=== PATIENT | female | born 1950 | race Caucasian/White ===

== ENCOUNTER 2016-08-28 19:58 | Inpatient (IN) | payer MEDICARE, BC ==
[2016-08-28] MEDS ORDERED: ADENOSINE 3 MG/ML DISP.SYRIN IV ONE ×2 (20:03→20:31)
[2016-08-28] MEDS ORDERED: DILTIAZEM HCL 5 MG/ML VIAL IV ONE ×2 (20:10→20:31)
[2016-08-28] MEDS ORDERED: DILTIAZEM HCL 125 MG in DEXTROSE 5 % IN WATER 100 ML IV PRN ×2 (20:20)
--- NOTE | 2016-08-28 20:32 | ERNOTE ---
Chest Pain/Cardiac HPI Chief Complaint: Palpitations Time Seen by Provider: 08/28/16 20:25 Source: patient, EMS Exam Limitations: no limitations Allergies/Adverse Reactions: Allergies Penicillins Allergy (Verified 08/28/16 21:34) Home Medications: HOME MEDICATIONS Atenolol [Tenormin] 100 mg PO TID 08/28/16 [Last Taken Unknown] Cyclobenzaprine HCl 20 mg PO HS 08/28/16 [Last Taken Unknown] Fluticasone Propionate [Allergy Relief] 2 spray NS DAILY 08/28/16 [Last Taken Unknown] Furosemide [Lasix] 40 mg PO DAILY PRN 08/28/16 [Last Taken Unknown] LORazepam [Ativan] 0.5 mg PO HS 08/28/16 [Last Taken Unknown] LORazepam [Ativan] 1 mg PO 0900 08/28/16 [Last Taken Unknown] Levofloxacin [Levaquin] 500 mg PO DAILY 08/28/16 [Last Taken Unknown] Levothyroxine Sodium [Synthroid] 50 mcg PO DAILY 08/28/16 [Last Taken Unknown] Multivitamin [Multivitamins] 1 each PO DAILY 08/28/16 [Last Taken Unknown] Omeprazole 20 mg PO DAILY 08/28/16 [Last Taken Unknown] Potassium Chloride [Klor-Con M20] 20 meq PO BID PRN 08/28/16 [Last Taken Unknown ] QUEtiapine FUMARATE [Seroquel] 75 mg PO HS 08/28/16 [Last Taken Unknown] Narrative: Pt brought in by EMS with palpitations and weakness. EMS found narrow complex tachycardia at 170-180 bpm mixed with runs of stable monomorphic wide complex tachycardia at 150 bpm. Pt has holter monitor on due to these symptoms that have been intermittant for 4-5 months. Timing: constant, getting worse Severity/Quality: moderate, severe Chest Pain Radiation: no radiation Activities at Onset: activity - not strenuous, was walking the dog Modifying Factors - Improves: Present: nothing Modifying Factors - Worsens: Present: exercise Review of Systems - Review of Systems Constitutional: Absent: recent illness EYE: Present: no symptoms reported ENT: Present: no symptoms reported Respiratory: Present: shortness of breath. Absent: cough Cardiology: Present: palpitations. Absent: chest pain Gastrointestinal/Abdominal: Absent: nausea, vomiting Genitourinary: Present: no symptoms reported Musculoskeletal: Present: no symptoms reported Skin: Present: no symptoms reported Neurological: Present: dizziness/light-headedness Endocrine: Present: no symptoms reported Hematologic/Lymphatic: Present: no symptoms reported Psych: Present: no symptoms reported - Patient's Past Medical History Patient History - Cardiac/Respiratory: Arrhythmias - Family History Mother Family History - Medical: - at 62 Family History - Cancer: Bone Father Family History - Medical: Family History - Cardiac/Respiratory: CHF Physical Exam - Physical Exam General Appearance: Present: wd/wn, alert, mild distress, lethargic - mildly Eye Exam: Normal inspection: bilateral Ears, Nose, Throat: Present: normal ENT inspection Neck: Present: normal inspection, nontender Respiratory: Present: no respiratory distress, normal breath sounds, chest nontender, lungs clear Cardiovascular/Chest: Present: tachycardia Gastrointestinal/Abdominal: Present: normal bowel sounds, nontender, nondistended, soft Extremity Exam: Present: normal inspection, non-tender, no edema Neurological Exam: Present: alert, oriented, lens edger II-XII nml as tested Skin Exam: Present: normal color, warm/dry Lymphatic Exam: Present: no adenopathy ED Progress - Results and Orders Patient's Lab Results:: I have reviewed the patient's lab results. Results and Orders: Laboratory Tests 08/28/16 08/28/16 08/28/16 20:30 20:30 20:30 WBC 11.8 H Hgb 15.2 Hct 44.5 Plt Count 285 PT 10.8 INR (Anticoag Therapy) 1.04 PTT (Courtney) 26.7 Sodium 142 Potassium 2.9 L Chloride 106 Carbon Dioxide 21.9 L Anion Gap 17.0 H BUN 24 H Creatinine 1.30 Est GFR (Non-Af Amer) 44 L D BUN/Creatinine Ratio 18.5 Random Glucose 104 Calcium 9.0 Total Bilirubin 0.5 AST 18 ALT 23 Alkaline Phosphatase 101 Troponin I Less than 0.017 Total Protein 7.4 Albumin 3.3 L - Vital Signs Patient's Vital Signs:: I have reviewed the patient's vital signs. - EKG EKG: atrial fibrillation EKG read: Interp. by me EKG Comments: with run of monomorphic wide complex tachycardia - X-Ray X-Ray #1 X-Ray: chest Interpretation: Reviewed by me X-ray Comments: The lungs are mildly hyperinflated. There is eventration of the right diaphragm.. No focal consolidation. No pneumothorax or pleural effusion. Scattered calcified granulomas. The cardiac silhouette and mediastinal contours are unchanged. The pulmonary vascular markings are normal. Scattered calcified granulomas. The osseous structures are remarkable for degenerative changes. No acute osseous findings. Surgical clips are superimposed over the right upper quadrant. IMPRESSION: No acute pulmonary findings. Electronically signed by Chris Otto D.O.. - Progress/Reassessment Chief Complaint: Palpitations Progress:: Improved Progress Note-Subjective: 08/28/16 21:41 Pt began feeling much better after Cardizem 20 mg IV which brought heart rate down to 800-100 bpm. Pt no longer short of breath and not dizzy 08/28/16 22:00 Spoke with Elysia RANDOLPHP hospitalist she agrees with admission and will see pt in ED. Departure - Departure Clinical Impression: Atrial fibrillation with RVR Disposition: [facility] Condition: Good
[2016-08-28 20:34] LABS: Hematocrit 44.5 % (37.0-47.0); Hemoglobin 15.2 gm/dL (12.5-16.0); Mean Cell Volume 87.4 fl (78-100); Mean Corpuscular Hemoglobin 29.9 pg (27-31); Mean Corpuscular Hgb Conc 34.2 g/dl (32-36); Mean Platelet Volume 11.4 fl (6.0-9.5); Platelet Count 285 K/mm3 (150-450); Red Blood Count 5.09 M/mm3 (4.2-5.4); Red Cell Distribution Width 13.7 % (11.5-14.0); White Blood Count 11.8 K/mm3 (4.0-10.5)
[2016-08-28 20:39] LABS: Total Cells Counted 100
[2016-08-28] MEDS ORDERED: NORMAL SALINE 1,000 ML IV ONE (20:39)
[2016-08-28 20:42] LABS: Prothrombin Time (Patient) 10.8 Seconds (9.4-11.4)
[2016-08-28 20:43] LABS: INR 1.04 INR (0.90-1.10); Partial Thrombolplastin Time 26.7 Seconds (24-32)
[2016-08-28 20:49] LABS: ALT 23 U/L (19-67); AST 18 U/L (0-48); Albumin * 3.3 gm/dl (3.4-5.0); Alkaline Phosphatase * 101 U/L (50-170); BUN/Creatinine Ratio 18.5 (9.0-21.6); Bilirubin, Total 0.5 mg/dL (0.0-1.1); Blood Urea Nitrogen 24 mg/dL (3-23); Ca. Corrected For Albumin 9.2 mg/dL (8.4-10.2); Carbon Dioxide 21.9 mmol/L (24-32.6); Chloride 106 mmol/L (97-106); Glucose * 104 mg/dL (70-110); Potassium 2.9 mmol/L (3.4-4.6); Sodium 142 mmol/L (132-142); Total Protein 7.4 gm/dL (6.2-8.2)
[2016-08-28 20:50] LABS: Troponin I Less than 0.017 ng/ml (0.00-0.10)
--- OUTSIDE RECORDS SUMMARY | 2016-08-28 20:56 | XMS REPORT | Continuity of Care Document ---
:1950 Author Organization [facility] [place] [address] Care Team Providers Name Role Phone Provider, None Per Patient Primary Care Provider Unavailable Source Comments This disclosure is being made pursuant to the [email or web address] program and maynot contain all information available regarding this patient.[facility] Active Allergies and Adverse Reactions Allergen Noted Date Severity Reactions Comments Azithromycin 06/04/2014 Other (See Comments) Severe abdominal pain Pcn 06/04/2014 High Hives Reglan 06/04/2014 Medium Tardive Dyskinesia Current Medications Be aware that medications may not be up to date as of this document. Alwaysverify current medications with the patient. Prescription Sig. Disp. Refills Start Date End Date Status fluoxetine (PROZAC) 40 Take 40 mg by Active MG capsule mouth daily. cyclobenzaprine Take 10 mg by Active (FLEXERIL) 10 MG mouth 2 (two) tablet times daily. Indications: fibromyalgia levothyroxine Take 50 mcg by Active (SYNTHROID, mouth every LEVOTHROID) 50 MCG morning. tablet Multiple Take by mouth. Active Vitamins-Minerals (MULTIVITAMIN & MINERAL PO) captopril (CAPOTEN) 25 Take 25 mg by Active MG tablet mouth 2 (two) times daily. LORazepam (ATIVAN) 0.5 Take 1 tablet by 30 tablet 0 06/10/2014 Active MG tablet mouth 2 (two) times daily. Active Problems No known active problems Resolved Problems Problem Noted Date Resolved Date Major psychotic depression, recurrent (HCC) 06/10/2014 06/10/2014 Social History Tobacco Use Types Packs/Day Years Used Date Never Smoker Smokeless Tobacco: Never Used Alcohol Use Drinks/Week oz/Week Comments No rarely Last Filed Vital Signs Vital Sign Reading Time Taken Blood Pressure 104/72 06/10/2014 8:55 AM MEDICAL AFFAIRS DIRECTOR Pulse 74 06/10/2014 8:55 AM MEDICAL AFFAIRS DIRECTOR Temperature 36.3 C (97.3 F) 06/10/2014 8:55 AM MEDICAL AFFAIRS DIRECTOR Respiratory Rate 16 06/10/2014 8:55 AM MEDICAL AFFAIRS DIRECTOR Height 1.6 m (5' 3") 06/05/2014 12:19 PM MEDICAL AFFAIRS DIRECTOR Weight 77.111 kg (170 lb) 06/05/2014 12:19 PM MEDICAL AFFAIRS DIRECTOR Body Mass Index 30.12 06/05/2014 12:19 PM MEDICAL AFFAIRS DIRECTOR Oxygen Saturation 94% 06/07/2014 11:37 PM MEDICAL AFFAIRS DIRECTOR Plan of Care Health Maintenance Due Date Last Done Comments Tetanus/Pertussis (1 - Tdap) 08/01/1970 Pap Smear 08/01/1972 Mammogram 1991 Colonoscopy 08/01/2001 Well Adult Visit 08/01/2001 Zoster Vaccine 60+ 2011 Retired-INFLUENZA VACCINE 01/06/2016 Results from Last 3 Months Not on file
--- OUTSIDE RECORDS SUMMARY | 2016-08-28 20:57 | XMS REPORT | Continuity of Care Document ---
:1950 Author Organization [facility] ([facility]) [place] [address] Phone [phone] Care Team Providers Name Role Phone Azeem Fall Primary Care Provider [phone] Source Comments This disclosure is being made pursuant to the Care Everywhere program, applicable federal and state laws, and may not contain all informaitonavailable regarding this patient.[facility] ([facility]) Active Allergies and Adverse Reactions Allergen Noted Date Severity Reactions Comments Azithromycin 08/09/2016 Unknown Severe abdominal pain Erythromycin 08/11/2014 Stomach Pain Metoclopramide 08/09/2016 Medium Unknown Metoclopramide Hcl 08/11/2014 OTHER Tardive dyskenesia Penicillins 08/11/2014 Urticaria (Hives) Current Medications Prescription Sig. Disp. Refills Start Date End Date Status Trolamine Salicylate by Apply Active (ASPERCREME) 10 % externally lotn route 4 times daily. To knee LORazepam 0.5 mg Take 1 mg by Active tablet mouth 2 times daily. Taking 1mg AM and 0.5mg PM cyclobenzaprine 10 Take 20 mg by Active mg tablet mouth at bedtime. [id number]-dha-e Take 1 Cap by Active pa-fish-st mouth 2 times (GLUCOSAMINE daily. CHONDROITIN PLUS) 367-277-80-54 mg cap levothyroxine 50 mcg Take 50 mcg by Active tablet mouth daily. multivitamin tablet Take 1 Tab by Active mouth daily. OMEPRAZOLE 20 mg Take 20 mg by 10/02/2014 Active enteric coated mouth daily. capsule FLUTICASONE 50 11 11/27/2014 Active mcg/Actuation nasal spray QUEtiapine 25 mg Take 75 mg by 09/14/2015 Active tablet mouth at bedtime. 75mg at HS aspirin 81 mg EC Take 1 tablet 30 tablet 10/27/2015 Active tablet (81 mg total) by mouth daily. multivitamin with Active minerals tablet atenolol 100 mg Take 100 mg by 3 08/01/2016 Active tablet mouth 3 times daily. furosemide 40 mg Take 40 mg by Active tablet mouth daily. potassium chloride Take 20 mEq by Active 20 mEq XR tablet mouth daily. atenolol 50 mg Take 100 mg by Discontinued tablet mouth 3 times 7 daily. loratadine-pseudoeph Take 1 tablet Discontinued edrine 5-120 mg per by mouth 2 7 tablet (12 hour) times daily. FLUoxetine 20 mg Take 20 mg by 11 10/18/2015 Discontinued capsule mouth daily. 7 captopril 25 mg Take 25 mg by Discontinued tablet mouth. 7 Active Problems Problem Noted Date Nonrheumatic aortic valve insufficiency 10/27/2015 Essential hypertension 10/27/2015 Pseudophakia 11/20/2014 Severe myopia of both eyes 10/15/2014 Cataract, cortical, left eye 10/15/2014 Diplopia 10/15/2014 Presbyopia 10/15/2014 Esotropia Overview: Poor abduction and elevation Bilateral 03/04/15: [facility] 4.0 mm - Gavino/Peggy - [facility] Last Assessment & Plan: Esophoria, well controlled now She will call if she is having more diplopia otherwise will follow up in general eye clinic Most Recent Encounters Date Type Specialty Providers Description 08/09/2016 Office Visit Heart and Vascular Una Carcamo, Dx: Palpitations DO (Primary Dx) Social History Tobacco Use Types Packs/Day Years Used Date Never Smoker Smokeless Tobacco: Never Used Alcohol Use Drinks/Week oz/Week Comments No Last Filed Vital Signs Vital Sign Reading Time Taken Blood Pressure 140/60 08/09/2016 1:22 PM CDT Pulse 64 08/09/2016 1:22 PM CDT Temperature 37.6 C (99.7 F) 03/04/2015 3:48 PM CDT Respiratory Rate 16 03/04/2015 4:15 PM CDT Height 1.6 m (5' 3") 08/09/2016 1:22 PM CDT Weight 84.369 kg (186 lb) 08/09/2016 1:22 PM CDT Body Mass Index 32.96 08/09/2016 1:22 PM CDT Oxygen Saturation 96% 03/04/2015 4:15 PM CDT Plan of Care Date Type Specialty Providers Description 08/30/2016 Appointment Heart and Vascular Ronn Garcia, Chief Comp: Patient MD Reported Reason For [address] [place] [address] [phone] (Fax) 08/30/2016 Appointment Heart and Vascular Ronn Garcia, Chief Comp: Patient MD Reported Reason For [address] [place] [address] [phone] (Fax) 09/22/2016 Appointment Ophthalmology - Noah Mancia MD Chief Comp: Patient Specialty [address] [place] [address] Visit [phone] (Fax) Health Maintenance Due Date Last Done Comments HCV Screening 1950 Hepatitis B Vaccine (1 of 3 - Primary Series) 1950 Tdap Vaccine 08/01/1962 Lipid Disorder Screening 08/01/1969 Td Vaccine 08/01/1969 Cervical Cancer Screening 08/01/1981 Mammogram 1991 Colonoscopy 08/01/2001 Zoster Vaccine 2011 Osteoporosis Screening (DXA Bone Density) 08/01/2016 Pneumococcal Vaccine (1 of 2 - PCV13) 08/01/2016 Influenza Vaccine: Seasonal (Season Ended) 2016 Results from Last 3 Months Not on file
[2016-08-28 20:58] LABS: Atypical (Reactive) Lymph 8 % (0-2); Dohle Bodies Trace; Eosinophil 1 % (0-3); Lymphocyte 54 % (20-51); Monocyte 9 % (0-9); Neutrophil 28 % (42-75); Neutrophil # 3.3 K/mm3 (1.3-6.0); Platelet Estimate Normal (NORMAL)
[2016-08-28] MEDS ORDERED: POTASSIUM BICARBONATE/CIT AC 25 MEQ TABLET.EFF PO ONE (21:17)
[2016-08-28] MEDS ORDERED: POTASSIUM BICARBONATE/CIT AC 25 MEQ TABLET.EFF ONE (21:25)
[2016-08-28 21:40] LABS: Urine Bilirubin Negative (NEGATIVE); Urine Blood Negative /ul (NEGATIVE); Urine Ketone Negative (NEGATIVE); Urine Nitrite Negative (NEGATIVE); Urine Protein Negative (NEGATIVE); Urine Specific Gravity <=1.005 SP.GR. (1.005-1.010); Urine Urobilinogen Normal (NORMAL)
[2016-08-28 21:47] LABS: Urine Appearance Clear; Urine Color Yellow; Urine RBC None Seen /hpf (0-5); Urine WBC 0-5 /hpf (0-5)
[2016-08-28 21:48] LABS: Urine Bacteria 1+
--- OUTSIDE RECORDS SUMMARY | 2016-08-28 22:09 | XMS REPORT | Continuity of Care Document ---
:1950 Author Organization [facility] ([facility]) Address [place] [address] Phone [phone] Care Team Providers Name Role Phone Azeem Fall Primary Care Provider [phone] Source Comments This disclosure is being made pursuant to the Care Everywhere program, applicable federal and state laws, and may not contain all informaitonavailable regarding this patient.[facility] ([facility]) Active Allergies and Adverse Reactions Allergen Noted [...] by Active mg tablet mouth at bedtime. [id number] Take 1 Cap by Active pa-fish-st mouth 2 times (GLUCOSAMINE daily. CHONDROITIN PLUS) 099-101-10-54 mg cap levothyroxine 50 mcg Take 50 [...] Overview: Poor abduction and elevation Bilateral 03/04/15: [facility] 4.0 mm - Gavino/Peggy - [facility] Last Assessment & Plan: Esophoria, well controlled [...] Reported Reason For [address] [place] [place] [address] [phone] (Fax) 08/30/2016 Appointment Heart and Vascular Ronn Garcia, Chief Comp: Patient MD Reported Reason For [address] [place] [place] [address] [phone] (Fax) 09/22/2016 Appointment Ophthalmology - Noah Mancia MD Chief Comp: Patient Specialty [address] [place] [address] Visit [phone] (Fax) Health Maintenance Due Date Last Done [...]
--- OUTSIDE RECORDS SUMMARY | 2016-08-28 22:09 | XMS REPORT | Continuity of Care Document ---
:1950 Author Organization [facility] [place] [address] Care Team Providers Name Role Phone Provider, None Per Patient Primary Care Provider Unavailable Source Comments This disclosure is being made pursuant to the [employer] program and maynot contain all information available regarding this patient.[facility] Active Allergies and Adverse Reactions Allergen Noted [...] Taken Blood Pressure 104/72 06/10/2014 8:55 AM MANAGER SERVICE DESK Pulse 74 06/10/2014 8:55 AM MANAGER SERVICE DESK Temperature 36.3 C (97.3 F) 06/10/2014 8:55 AM MANAGER SERVICE DESK Respiratory Rate 16 06/10/2014 8:55 AM MANAGER SERVICE DESK Height 1.6 m (5' 3") 06/05/2014 12:19 PM MANAGER SERVICE DESK Weight 77.111 kg (170 lb) 06/05/2014 12:19 PM MANAGER SERVICE DESK Body Mass Index 30.12 06/05/2014 12:19 PM MANAGER SERVICE DESK Oxygen Saturation 94% 06/07/2014 11:37 PM MANAGER SERVICE DESK Plan of Care Health Maintenance Due Date Last Done Comments Tetanus/Pertussis (1 - Tdap) 08/01/1970 Pap Smear 08/01/1972 Mammogram 1991 Colonoscopy 08/01/2001 Well Adult Visit 08/01/2001 Zoster Vaccine 60+ 2011 Retired-INFLUENZA VACCINE 01/06/2016 Results from Last 3 Months Not on file
--- NOTE | 2016-08-28 23:31 | HP ---
<ZenElysia - Last Filed: 08/29/16 07:08> Chief Complaint - Chief Complaint Date of Service: 08/28/16 Time of Service: 22:42 Chief Complaint: "SOB, Light headeness,sweaty, could not walk". Source of HPI- Pt; unreliable, ER provider report, Pt's EMR. History of Present Illness: Ms. Samson is a 66-yr-old WF pt of Dr. Dorsey with a PMH of: Anxiety, Athritis, Fibromylagia, GERD, HTN, Hypothyroidism, Major Depressive Disorder & PSVT. Pt reports that she had a normal day today and went to work as usual. After she got home in the evening, she walked her puppy. Later while just sitting down, she became SOB, got light headed and became very weak. She called the EMS as she felt her symptoms were related to her irregular heartbeat problems she has had before. She denied Chest pain. Off note, she has had Paroxysmal Tachycardia since Sep, 2015. She was started on Atenolol 50mg daily and saw Cardiology in October, and she felt that Atenolol was controlling her symptoms. She was started on Aspirin and an Echocardiogram done showed she had Aortic Regurgitation. In Jun, 2016, she presented to the office for respiratory illness and HR was noted to be in 160-180 range. Her atenolol dose was increased to 50mg t.i.d. She thought that her tachycardia symptoms seemed to improve, but in August 01, 2016, she raised concerns to her PCP about HR of 160 several times in the week. She was referred to the [facility] Cardiology for a holter monitoring. She states that her Atenolol dose was increased to 100mg t.i.d. and arrangements were made for Cardiac Stress test at [facility], which would be this coming Wednesday 08/30. She felt that she had been doing well since her medication had been increased until tonight's episode when she came to the ED. During evaluation at the ED,HR she was found to be in SVT with HR 170-180s and was given Adenosine. HR dropped to the 120s but was noted to be Afib with RVR. She was given additional IV diltiazem,and remained in the 110s and Cardizem gtt was initiated. At the time of physical exam, she is in no distress and states she feels much better to when she came. She will be placed under observation with remote telemetry monitoring to ensure she does not she does not sustain ventricular tachycardia. - Patient's Past Medical History Patient History - Medical: Anxiety, Arthritis, GERD, Hypothyroidism - Paroxysmal Supraventricular Tachycardia, Aortic Stenosis,Fibromyyalgia. , Other Patient History - Cardiac/Respiratory: Arrhythmias, Hypertension LMP (females 10-50): Menopausal - Family History Mother Family History - Medical: - at 62 Family History - Cancer: Bone Father Family History - Medical: Family History - Cardiac/Respiratory: CHF - Social History Living Situations: home Psych History: Hx of Anxiety Smoking Status: Never smoker Alcohol Use: none Drug Use: none - Immunizations Immunizations Up to Date: No Hx Pneumococcal Vaccination: More Information Required to Determine History of Influenza Vaccine: Yes Review Of Systems (GEN) - Review of Systems Generalized/Overall Review: Present: Weakness, Diaphoresis. Absent: Chills, Fever, Fatigue, Weight loss EENTM: Absent: Eye Pain, Double Vision Respiratory: Present: Shortness of Breath. Absent: Cough, Orthopnea, Stridor Cardiac: Present: Palpitations. Absent: Chest Pain, Edema, Syncope Abdominal: Absent: Nausea, Vomiting Genitourinary: Absent: Burning, Itching, Urgency, Frequency Musculoskeletal: Absent: Joint Pain, Back Pain, Joint Swelling Neurological: Absent: Headache, Anxiety, Depressed Skin: Absent: Dryness, Lesions, Bruising Endocrine: Absent: Intolerance to Cold, Increased Thirst Misc: All systems neg except as marked Allergies/Adverse Reactions: Allergies Allergy/AdvReac Type Severity Reaction Status Date / Time Penicillins Allergy Verified 08/28/16 21:34 Home Medications: HOME MEDICATIONS Atenolol [Tenormin] 100 mg PO TID 08/28/16 [Last Taken Unknown] Cyclobenzaprine HCl 20 mg PO HS 08/28/16 [Last Taken Unknown] Fluticasone Propionate [Allergy Relief] 2 spray NS DAILY 08/28/16 [Last Taken Unknown] Furosemide [Lasix] 40 mg PO DAILY PRN 08/28/16 [Last Taken Unknown] LORazepam [Ativan] 0.5 mg PO HS 08/28/16 [Last Taken Unknown] LORazepam [Ativan] 1 mg PO 0900 08/28/16 [Last Taken Unknown] Levofloxacin [Levaquin] 500 mg PO DAILY 08/28/16 [Last Taken Unknown] Levothyroxine Sodium [Synthroid] 50 mcg PO DAILY 08/28/16 [Last Taken Unknown] Multivitamin [Multivitamins] 1 each PO DAILY 08/28/16 [Last Taken Unknown] Omeprazole 20 mg PO DAILY 08/28/16 [Last Taken Unknown] Potassium Chloride [Klor-Con M20] 20 meq PO BID PRN 08/28/16 [Last Taken Unknown ] QUEtiapine FUMARATE [Seroquel] 75 mg PO HS 08/28/16 [Last Taken Unknown] Exam - Exam Vital Signs: Vital Signs - Last Taken Temp 36.3 C L 08/28/16 20:25 Pulse 102 H 08/28/16 21:55 Resp 16 08/28/16 21:55 BP 109/55 08/28/16 21:55 Pulse Ox 98 08/28/16 21:55 Constitutional: Present: Alert, Oriented x3, No distress ENT Exam: Present: normal ENT inspection, hearing grossly normal. Absent: nasal drainage, pharyngeal erythema Eye Exam: bilateral eye: normal inspection, PERRL Neck: Present: full range of motion, supple, normal inspection Back Exam: Present: normal inspection, no CVA tenderness Respiratory: Present: lungs clear, no accessory muscle use Cardiovascular/Chest: Present: normal peripheral pulses, no chest tenderness, no edema, no JVD, no murmur, irregularly irregular Abdomen: Present: Normal bowel sounds, soft, nontender /Rectal: Present: Exam deferred Extremity: Present: normal range of motion, non-tender, normal inspection Skin Exam: Present: warm/dry, no cyanosis Lymphatic: Present: no adenopathy Neurologic: Present: no motor/sensory deficits, oriented x 3, abnormal gait Appearance: Present: appropriate appearance, appropriate insight Eye contact: Present: cooperative, good eye contact, normal speech Thoughts: Present: normal thought pattern, no apparent hallucination Diagnostic Studies: Laboratory Results WBC 11.8 K/mm3 (4.0-10.5) H 08/28/16 20:30 RBC 5.09 M/mm3 (4.2-5.4) 08/28/16 20:30 Hgb 15.2 gm/dL (12.5-16.0) 08/28/16 20:30 Hct 44.5 % (37.0-47.0) 08/28/16 20:30 MCV 87.4 fl (78-100) 08/28/16 20:30 MCH 29.9 pg (27-31) 08/28/16 20:30 MCHC 34.2 g/dl (32-36) 08/28/16 20:30 RDW 13.7 % (11.5-14.0) 08/28/16 20:30 Plt Count 285 K/mm3 (150-450) 08/28/16 20:30 MPV 11.4 fl (6.0-9.5) H 08/28/16 20:30 Neutrophils % (Manual) 28 % (42-75) L 08/28/16 20:30 Lymphocytes % (Manual) 54 % (20-51) H 08/28/16 20:30 Monocytes % (Manual) 9 % (0-9) 08/28/16 20:30 Eosinophils % (Manual) 1 % (0-3) 08/28/16 20:30 Neutrophils # (Manual) 3.3 K/mm3 (1.3-6.0) 08/28/16 20:30 Lymphocytes # (Manual) 6.4 k/mm3 (1.5-3.5) H 08/28/16 20:30 Monocytes # (Manual) 1.1 k/mm3 (0.0-1.0) H 08/28/16 20:30 Eosinophils # (Manual) 0.1 k/mm3 (0.0-0.7) 08/28/16 20:30 Atypic/Reactive Lymphs 8 % (0-2) H 08/28/16 20:30 Toxic Vacuolation Trace 08/28/16 20:30 Dohle Bodies Trace 08/28/16 20:30 Platelet Estimate Normal (NORMAL) 08/28/16 20:30 PT 10.8 Seconds (9.4-11.4) 08/28/16 20:30 INR (Anticoag Therapy) 1.04 INR (0.90-1.10) 08/28/16 20:30 PTT ([place]) 26.7 Seconds (24-32) 08/28/16 20:30 Sodium 142 mmol/L (132-142) 08/28/16 20:30 Plasma Sodium 142 mmol/L (130-142) 08/28/16 20:30 Potassium 2.9 mmol/L (3.4-4.6) L 08/28/16 20:30 Chloride 106 mmol/L (97-106) 08/28/16 20:30 Carbon Dioxide 21.9 mmol/L (24-32.6) L 08/28/16 20:30 Anion Gap 17.0 mmol/L (6.8-13.8) H 08/28/16 20:30 BUN 24 mg/dL (3-23) H 08/28/16 20:30 Creatinine 1.30 mg/dL (0.4-1.4) 08/28/16 20:30 Est GFR (Non-Af Amer) 44 mL/min (60-130) L D 08/28/16 20:30 BUN/Creatinine Ratio 18.5 (9.0-21.6) 08/28/16 20:30 Random Glucose 104 mg/dL (70-110) 08/28/16 20:30 Calcium 9.0 mg/dL (7.9-10.9) 08/28/16 20:30 Calcium Adj for Albumin 9.2 mg/dL (8.4-10.2) 08/28/16 20:30 Total Bilirubin 0.5 mg/dL (0.0-1.1) 08/28/16 20:30 AST 18 U/L (0-48) 08/28/16 20:30 ALT 23 U/L (19-67) 08/28/16 20:30 Alkaline Phosphatase 101 U/L (50-170) 08/28/16 20:30 Troponin I Less than 0.017 ng/ml (0.00-0.10) 08/28/16 20:30 Total Protein 7.4 gm/dL (6.2-8.2) 08/28/16 20:30 Albumin 3.3 gm/dl (3.4-5.0) L 08/28/16 20:30 Urine Color Yellow 08/28/16 21:37 Urine Appearance Clear 08/28/16 21:37 Urine pH 7.0 pH (5.0-7.0) 08/28/16 21:37 Ur Specific [place] <=1.005 SP.GR. (1.005-1.010) 08/28/16 21:37 Urine Protein Negative mg/dL (NEGATIVE) 08/28/16 21:37 Urine Glucose (UA) Negative mg/dL (NEGATIVE) 08/28/16 21:37 Urine Ketones Negative mg/dL (NEGATIVE) 08/28/16 21:37 Urine Blood Negative /ul (NEGATIVE) 08/28/16 21:37 Urine Nitrate Negative (NEGATIVE) 08/28/16 21:37 Urine Bilirubin Negative mg/dl (NEGATIVE) 08/28/16 21:37 Urine Urobilinogen Normal EU/dl (NORMAL) 08/28/16 21:37 Ur Leukocyte Esterase 75 /ul (NEGATIVE) H 08/28/16 21:37 Urine RBC None seen /hpf (0-5) 08/28/16 21:37 Urine WBC 0-5 /hpf (0-5) 08/28/16 21:37 Ur Epithelial Cells 10-25 /hpf (0-5) H 08/28/16 21:37 Urine Bacteria 1+ (NONE) H 08/28/16 21:37 Urine Culture Comments Culture to follow 08/28/16 21:37 Assessment/Plan - Assessment/Plan (1) Paroxysmal supraventricular tachycardia Assessment: Pt reported developing SOB, lightheadedness/dizziness and presented with HR in the 170-180s at the ED. No chest pain , hypotension or decreased level of consciousness. She received Adenosine and Diltiazem IVP 20 mg and HR was controlled to the 110s. Diltazem gtt was initiated but had to be stopped as she became bradycardic. Admitted to close monitoring unit. Will continue with remote telemetry monitoring and IVF - NS@75. Problem: Acute (2) Atrial fibrillation with RVR Assessment: Believe that this was related to a reversible cause and not due to structural heart disease. Will monitor with remote telemetry. Problem: Acute (3) HTN (hypertension) Assessment: Stable- Problem: Chronic QualifierTitle: Hypertension type: essential hypertension Qualified Code( s): I10 - Essential (primary) hypertension (4) Anxiety Assessment: Stable- Ativan & Seroquel. Problem: Chronic (5) GERD (gastroesophageal reflux disease) Assessment: Stable- Protonix Problem: Chronic <Azeem Dorsey - Last Filed: 08/29/16 13:22> Immunizations: IMMUNIZATION HX Immunizations Up to Date No History of Influenza Vaccine Yes Hx Pneumococcal Vaccination More Information Required Exam - Exam Vital Signs: Vital Signs - Last Taken Temp 36.8 C 08/29/16 08:00 Pulse 76 08/29/16 12:00 Resp 18 08/29/16 11:46 BP 125/54 08/29/16 11:46 Pulse Ox 99 08/29/16 11:46 Diagnostic Studies: Abnormal Lab Results 08/29/16 08/29/16 Range/Units 06:13 07:08 RDW 14.2 H (11.5-14.0) % MPV 11.8 H (6.0-9.5) fl Immature Gran % (Auto) 1.10 H (0.001-0.429) % Immature Gran # (Auto) 0.08 H (0.000-0.0310) K/mm3 Monocytes % 9.8 H (0.0-9) % Sodium 147 H (132-142) mmol/L Plasma Sodium 147 H (130-142) mmol/L Chloride 113 H (97-106) mmol/L BUN 25 H (3-23) mg/dL Est GFR (Non-Af Amer) 44 L (60-130) mL/min Random Glucose 131 H (70-110) mg/dL Laboratory Results WBC 7.6 K/mm3 (4.0-10.5) D 08/29/16 06:13 RBC 4.38 M/mm3 (4.2-5.4) 08/29/16 06:13 Hgb 13.4 gm/dL (12.5-16.0) 08/29/16 06:13 Hct 39.8 % (37.0-47.0) 08/29/16 06:13 MCV 90.9 fl (78-100) 08/29/16 06:13 MCH 30.6 pg (27-31) 08/29/16 06:13 MCHC 33.7 g/dl (32-36) 08/29/16 06:13 RDW 14.2 % (11.5-14.0) H 08/29/16 06:13 Plt Count 260 K/mm3 (150-450) 08/29/16 06:13 MPV 11.8 fl (6.0-9.5) H 08/29/16 06:13 Immature Gran % (Auto) 1.10 % (0.001-0.429) H 08/29/16 06:13 Immature Gran # (Auto) 0.08 K/mm3 (0.000-0.0310) H 08/29/16 06:13 Neutrophils % 45.4 % (42-75.0) 08/29/16 06:13 Neutrophils % (Manual) 28 % (42-75) L 08/28/16 20:30 Lymphocytes % 40.4 % (20-51) 08/29/16 06:13 Lymphocytes % (Manual) 54 % (20-51) H 08/28/16 20:30 Monocytes % 9.8 % (0.0-9) H 08/29/16 06:13 Monocytes % (Manual) 9 % (0-9) 08/28/16 20:30 Eosinophils % 2.4 % (0.0-3.0) 08/29/16 06:13 Eosinophils % (Manual) 1 % (0-3) 08/28/16 20:30 Basophils % 0.9 % (0.0-1.0) 08/29/16 06:13 Nucleated RBC % 0.0 k/mm3 (0-1) 08/29/16 06:13 Neutrophils # 3.4 K/mm3 (1.3-6.0) 08/29/16 06:13 Neutrophils # (Manual) 3.3 K/mm3 (1.3-6.0) 08/28/16 20:30 Lymphocytes # 3.1 k/mm3 (1.5-3.5) 08/29/16 06:13 Lymphocytes # (Manual) 6.4 k/mm3 (1.5-3.5) H 08/28/16 20:30 Monocytes # 0.7 k/mm3 (0.0-1.0) 08/29/16 06:13 Monocytes # (Manual) 1.1 k/mm3 (0.0-1.0) H 08/28/16 20:30 Eosinophils # 0.2 k/mm3 (0.0-0.7) 08/29/16 06:13 Eosinophils # (Manual) 0.1 k/mm3 (0.0-0.7) 08/28/16 20:30 Absolute Basophils 0.1 k/mm3 (0.0-0.1) 08/29/16 06:13 Atypic/Reactive Lymphs 8 % (0-2) H 08/28/16 20:30 Toxic Vacuolation Trace 08/28/16 20:30 Dohle Bodies Trace 08/28/16 20:30 Platelet Estimate Normal (NORMAL) 08/28/16 20:30 PT 10.8 Seconds (9.4-11.4) 08/28/16 20:30 INR (Anticoag Therapy) 1.04 INR (0.90-1.10) 08/28/16 20:30 PTT ([place]) 26.7 Seconds (24-32) 08/28/16 20:30 Sodium 147 mmol/L (132-142) H 08/29/16 07:08 Plasma Sodium 147 mmol/L (130-142) H 08/29/16 07:08 Potassium 4.6 mmol/L (3.4-4.6) D 08/29/16 07:08 Chloride 113 mmol/L (97-106) H 08/29/16 07:08 Carbon Dioxide 25.2 mmol/L (24-32.6) 08/29/16 07:08 Anion Gap 13.4 mmol/L (6.8-13.8) 08/29/16 07:08 BUN 25 mg/dL (3-23) H 08/29/16 07:08 Creatinine 1.29 mg/dL (0.4-1.4) 08/29/16 07:08 Est GFR (Non-Af Amer) 44 mL/min (60-130) L 08/29/16 07:08 BUN/Creatinine Ratio 19.4 (9.0-21.6) 08/29/16 07:08 Random Glucose 131 mg/dL (70-110) H 08/29/16 07:08 Calcium 8.5 mg/dL (7.9-10.9) 08/29/16 07:08 Calcium Adj for Albumin 9.2 mg/dL (8.4-10.2) 08/28/16 20:30 Total Bilirubin 0.5 mg/dL (0.0-1.1) 08/28/16 20:30 AST 18 U/L (0-48) 08/28/16 20:30 ALT 23 U/L (19-67) 08/28/16 20:30 Alkaline Phosphatase 101 U/L (50-170) 08/28/16 20:30 Troponin I Less than 0.017 ng/ml (0.00-0.10) 08/28/16 20:30 Total Protein 7.4 gm/dL (6.2-8.2) 08/28/16 20:30 Albumin 3.3 gm/dl (3.4-5.0) L 08/28/16 20:30 Urine Color Yellow 08/28/16 21:37 Urine Appearance Clear 08/28/16 21:37 Urine pH 7.0 pH (5.0-7.0) 08/28/16 21:37 Ur Specific [place] <=1.005 SP.GR. (1.005-1.010) 08/28/16 21:37 Urine Protein Negative mg/dL (NEGATIVE) 08/28/16 21:37 Urine Glucose (UA) Negative mg/dL (NEGATIVE) 08/28/16 21:37 Urine Ketones Negative mg/dL (NEGATIVE) 08/28/16 21:37 Urine Blood Negative /ul (NEGATIVE) 08/28/16 21:37 Urine Nitrate Negative (NEGATIVE) 08/28/16 21:37 Urine Bilirubin Negative mg/dl (NEGATIVE) 08/28/16 21:37 Urine Urobilinogen Normal EU/dl (NORMAL) 08/28/16 21:37 Ur Leukocyte Esterase 75 /ul (NEGATIVE) H 08/28/16 21:37 Urine RBC None seen /hpf (0-5) 08/28/16 21:37 Urine WBC 0-5 /hpf (0-5) 08/28/16 21:37 Ur Epithelial Cells 10-25 /hpf (0-5) H 08/28/16 21:37 Urine Bacteria 1+ (NONE) H 08/28/16 21:37 Urine Culture Comments Culture to follow 08/28/16 21:37 Assessment/Plan - Narrative Narrative: Record reviewed. Event monitor imported by me from [place] for this record. Dr. Garcia's consult from earlier this year reviewed. Patient feels better. In spite of high dose atenolol, still having these spells and this one was severe. Not really any response to adenosine in the ER. Diltiazem helped, but lowered her BP. Today she feels better. I interpret the EKG tracings as a fib with RVR, isolated PVCs and runs of monomorphic V tach. I personally supervised all of our nurse practitioner's care for this patient.
[2016-08-29] MEDS ORDERED: FUROSEMIDE 40 MG TABLET PO PRN (00:45)
[2016-08-29] MEDS ORDERED: POTASSIUM CHLORIDE 20 MEQ TABLET.SA PO PRN (00:46)
[2016-08-29] MEDS ORDERED: POTASSIUM CHLORIDE 40 MEQ/15 ML BTL PO ONE ×2 (00:48)
[2016-08-29 06:14] LABS: Hematocrit 39.8 % (37.0-47.0); Hemoglobin 13.4 gm/dL (12.5-16.0); Mean Cell Volume 90.9 fl (78-100); Mean Corpuscular Hemoglobin 30.6 pg (27-31); Mean Corpuscular Hgb Conc 33.7 g/dl (32-36); Mean Platelet Volume 11.8 fl (6.0-9.5); Neutrophil # 3.4 K/mm3 (1.3-6.0); Neutrophil % 45.4 % (42-75.0); Platelet Count 260 K/mm3 (150-450); Red Blood Count 4.38 M/mm3 (4.2-5.4); Red Cell Distribution Width 14.2 % (11.5-14.0); White Blood Count 7.6 K/mm3 (4.0-10.5)
[2016-08-29] MEDS: LEVOTHYROXINE SODIUM 50 MCG TABLET PO SCH (06:38)
[2016-08-29] MEDS: PANTOPRAZOLE SODIUM 20 MG TABLET.DR PO SCH (06:38)
[2016-08-29 07:15] LABS: Anion Gap 13.4 mmol/L (6.8-13.8); BUN/Creatinine Ratio 19.4 (9.0-21.6); Calcium * 8.5 mg/dL (7.9-10.9); Carbon Dioxide 25.2 mmol/L (24-32.6); Potassium 4.6 mmol/L (3.4-4.6)
[2016-08-29] MEDS ORDERED: ATENOLOL 100 MG TABLET PO SCH ×2 (07:45→09:00)
[2016-08-29] MEDS: LEVOFLOXACIN 500 MG TABLET PO SCH (08:12)
[2016-08-29] MEDS: FLUTICASONE PROPIONATE 120 SPRAY INHALER NS SCH (08:12)
[2016-08-29] MEDS: MULTIVITAMINS 1 CAP CAPSULE PO SCH (08:12)
[2016-08-29] MEDS: LORazepam 1 MG TABLET PO SCH (08:13)
[2016-08-29] MEDS: NORMAL SALINE 1,000 ML IV PRN (10:38)
[2016-08-29] MEDS ORDERED: WARFARIN SODIUM 10 MG TABLET PO ONE (13:13)
[2016-08-29] MEDS ORDERED: ACETAMINOPHEN 325 MG TABLET PO PRN (13:17)
--- NOTE | 2016-08-29 13:44 | PN ---
Subjective - Date and Time Seen Date: 08/29/16 Time: 13:26 Subjective Narrative: This is a 66 y/o woman who has been suffering with symptomatic tachydysrhythmias of uncertain type since earlier this year, with heart rates as high as 160-180. In the very distant past, she had similar problems, controlled with Norpace. She has not been on that medication for many years. Earlier this year, I started her on Atenolol, which seemed to help, but she required gradually increasing doses to decrease these events, until eventually, she was increased to 100 mg tid. She was seen by Dr. Garcia in the spring of this year, but at that time the exact nature of the rhythm problem was still uncertain. She has had a relatively benign echocardiogram this year, and her baseline EKG is also relatively benign. Last night, however, she had the most severe of all of her fast heart rate spells, leading to syncope, after just managing to call 911. She does remember the hospital ambulance ride. In the ER , she was given adenosine with no real effect. She was also given IV diltiazem , which helped, but lowered her BP substantially. This morning she feels better. She was scheduled for a cardiac stress test tomorrow, so we will now make this inpatient rather than outpatient. I have included in this record recent tracings from her [employer] event monitor, showing monomorphic runs of V tach. On this [facility] admission, I think her EKGs show a fib with RVR, PVCs and monomorphic runs of V tach. Objective - Review of Systems Generalized/Overall Review: Reports: Weakness, Malaise EENTM: Reports: No Symptoms Reported Respiratory: Reports: No Symptoms Reported Cardiac: Reports: No Symptoms Reported Abdominal: Reports: No Symptoms Reported Genitourinary Symptoms: Reports: No Symptoms Reported Musculoskeletal Complaints: Reports: No Symptoms Reported Neurological: Reports: No Symptoms Reported Skin: Reports: No Symptoms Reported Endocrine: Reports: No Symptoms Reported Misc: All systems neg except as marked - Vitals Vitals: Last Vital Signs Selected Entries 08/28/16 08/29/16 08/29/16 19:58 08:00 11:46 Temperature 36.8 C Pulse Rate 174 H 62 Pulse Rhythm Regular Pulse Strength Normal Respiratory 24 H 18 Rate Respiratory Normal Depth Respiratory Normal Effort Non-Labored Respiratory Normal Pattern Blood Pressure 140/111 125/54 Blood Pressure Sitting Position O2 Sat by Pulse 100 99 Oximetry Oxygen Delivery Room Air Room Air Method - Abnormal Lab Findings Abnormal Lab Findings: Abnormal Lab Results 08/29/16 08/29/16 Range/Units 06:13 07:08 RDW 14.2 H (11.5-14.0) % MPV 11.8 H (6.0-9.5) fl Immature Gran % (Auto) 1.10 H (0.001-0.429) % Immature Gran # (Auto) 0.08 H (0.000-0.0310) K/mm3 Monocytes % 9.8 H (0.0-9) % Sodium 147 H (132-142) mmol/L Plasma Sodium 147 H (130-142) mmol/L Chloride 113 H (97-106) mmol/L BUN 25 H (3-23) mg/dL Est GFR (Non-Af Amer) 44 L (60-130) mL/min Random Glucose 131 H (70-110) mg/dL - Exam Constitutional: Present: Alert, Oriented x3, Cooperative, Well developed, Well nourished, No distress ENT Exam: Present: normal ENT inspection, hearing grossly normal, pharynx normal , TMs normal Neck: Present: normal inspection Respiratory: Present: lungs clear, no respiratory distress Cardiovascular/Chest: Present: regular rate, rhythm, no murmur Abdomen: Present: Normal bowel sounds, soft, nontender, nondistended, no rebound tenderness, no hepatospenomegaly, no masses, obese Extremity: Present: normal range of motion, non-tender, normal inspection, no pedal edema, no calf tenderness Skin Exam: Present: normal color, warm/dry, no cyanosis Lymphatic: Present: no adenopathy Neurologic: Present: alert, normal mood/affect, oriented x 3 Appearance: Present: appropriate appearance, appropriate insight, neat, no memory impairment Eye contact: Present: cooperative, good eye contact, normal speech Thoughts: Present: normal thought pattern Assessment/Plan Plan Narrative: Given that the atenolol has been ineffective in controlling these paroxyms of tachycardia, a change is now in order. We are switching to amiodarone, a plan that is in and of itself is not without risk. Moreover, one of her rhythms, monomorphic v tach, is potentially life threatening. For these reasons, she needs to be monitored inpatient in an ICU where prompt action can be taken in reponse to potentially fatal untoward events. In the meantime, we will anticoagulate her because of the a fib, obtain a cardiology consult with Dr. Garcia who saw her in the spring of this year, and obtain her cardiac stress test as an inpatient tomorrow. Estimated hospital stay is 3-4 days. - Problems/Diagnosis (1) PVCs (premature ventricular contractions) Problem: Acute (2) Monomorphic ventricular tachycardia Problem: Acute (3) Depression Problem: Chronic Qualifiers: Depression Type: major depressive disorder Major depression recurrence: recurrent Active/Remission status: remission status unspecified Qualified Code(s): F33.9 - Major depressive disorder, recurrent, unspecified (4) Fluid retention Problem: Chronic (5) Atrial fibrillation with RVR Problem: Acute (6) Anxiety Problem: Chronic (7) GERD (gastroesophageal reflux disease) Problem: Chronic (8) HTN (hypertension) Problem: Chronic Qualifiers: Hypertension type: essential hypertension Qualified Code(s): I10 - Essential (primary) hypertension
[2016-08-29] MEDS: ENOXAPARIN SODIUM 80 MG/0.8 ML DISP.SYRIN SC SCH (14:01)
[2016-08-29] MEDS: ATENOLOL 50 MG TABLET PO SCH ×2 (14:01→21:06)
[2016-08-29] MEDS: AMIODARONE HCL 200 MG TABLET PO SCH ×2 (14:02→21:03)
[2016-08-29] MEDS ORDERED: CYCLOBENZAPRINE HCL 10 MG TABLET PO SCH (21:00)
[2016-08-29] MEDS ORDERED: LORazepam 0.5 MG TABLET PO SCH (21:00)
[2016-08-29] MEDS ORDERED: QUEtiapine FUMARATE 25 MG TABLET PO SCH (21:00)
[2016-08-30] MEDS: ENOXAPARIN SODIUM 80 MG/0.8 ML DISP.SYRIN SC SCH ×2 (01:17→13:59)
[2016-08-30] MEDS: NORMAL SALINE 1,000 ML IV PRN ×2 (01:20→16:52)
[2016-08-30] MEDS: AMIODARONE HCL 200 MG TABLET PO SCH ×4 (05:43→20:19)
[2016-08-30] MEDS: ATENOLOL 50 MG TABLET PO SCH (05:43)
[2016-08-30 05:49] LABS: Prothrombin Time (Patient) 11.4 Seconds (9.4-11.4)
[2016-08-30 05:58] LABS: INR 1.1 INR (0.90-1.10)
[2016-08-30 05:59] LABS: Partial Thrombolplastin Time 34.4 Seconds (24-32)
[2016-08-30 06:03] LABS: Anion Gap 14.2 mmol/L (6.8-13.8); BUN/Creatinine Ratio 20.3 (9.0-21.6); Calcium * 8.6 mg/dL (7.9-10.9); Carbon Dioxide 22.4 mmol/L (24-32.6); Estimated Creat Clear 34.9; Potassium 3.6 mmol/L (3.4-4.6); T4 Free * 0.86 ng/dL (0.76-1.46); TSH * 5.433 uIU/mL (0.358-3.74)
[2016-08-30] MEDS: PANTOPRAZOLE SODIUM 20 MG TABLET.DR PO SCH (07:37)
[2016-08-30] MEDS: LEVOTHYROXINE SODIUM 50 MCG TABLET PO SCH (07:40)
[2016-08-30] MEDS ORDERED: LEVOTHYROXINE SODIUM 75 MCG TABLET PO SCH (07:45)
[2016-08-30] MEDS ORDERED: LEVOTHYROXINE SODIUM 50 MCG TABLET PO SCH (07:45)
--- NOTE | 2016-08-30 07:59 | PN ---
Subjective - Date and Time Seen Date: 08/30/16 Time: 07:53 Subjective Narrative: Slept well last night. She has been in sinus bradycardia ever since yesterday. I have been tapering her atenolol with an eventual endpoint of 25 mg po every 12 hours. I am loading amiodarone because of the dysrhythmias in the ER plus the failure of the atenolol treatment. Adenosine failed in the ER. Diltiazem dropped her BP in the ER. I noticed her TSH was slightly high this morning. Her stress test is scheduled for 9 AM today, and I will ask Dr. Garcia to see her in consult today. Objective - Review of Systems Generalized/Overall Review: Reports: No Symptoms Reported EENTM: Reports: No Symptoms Reported Respiratory: Reports: No Symptoms Reported Cardiac: Reports: No Symptoms Reported Abdominal: Reports: No Symptoms Reported Genitourinary Symptoms: Reports: No Symptoms Reported Musculoskeletal Complaints: Reports: No Symptoms Reported Neurological: Reports: No Symptoms Reported Skin: Reports: No Symptoms Reported Endocrine: Reports: No Symptoms Reported Misc: All systems neg except as marked - Vitals Vitals: Last Vital Signs Selected Entries 08/29/16 08/29/16 08/30/16 19:00 21:06 00:00 Temperature Pulse Rate 83 61 Pulse Rhythm Pulse Strength Respiratory 68 H Rate Respiratory Pattern Blood Pressure 161/81 144/53 Blood Pressure Position O2 Sat by Pulse Oximetry Oxygen Delivery Method 08/30/16 08/30/16 08/30/16 01:23 06:29 06:54 Temperature Pulse Rate 56 L 54 L 58 L Pulse Rhythm Pulse Strength Respiratory Rate Respiratory Pattern Blood Pressure 147/69 118/75 Blood Pressure Position O2 Sat by Pulse Oximetry Oxygen Delivery Method 08/30/16 08/30/16 06:56 07:37 Temperature 37.0 C Pulse Rate 58 L 58 L Pulse Rhythm Irregular Pulse Strength Normal Respiratory 14 Rate Respiratory Normal Pattern Blood Pressure 118/75 118/75 Blood Pressure Supine Position O2 Sat by Pulse 97 Oximetry Oxygen Delivery Room Air Method - Abnormal Lab Findings Abnormal Lab Findings: Abnormal Lab Results 08/30/16 08/30/16 Range/Units 04:59 04:59 PTT ([place]) 34.4 H D (24-32) Seconds Sodium 143 H (132-142) mmol/L Plasma Sodium 143 H (130-142) mmol/L Chloride 110 H (97-106) mmol/L Carbon Dioxide 22.4 L (24-32.6) mmol/L Anion Gap 14.2 H (6.8-13.8) mmol/L BUN 27 H (3-23) mg/dL Est GFR (Non-Af Amer) 43 L (60-130) mL/min TSH 5.433 H (0.358-3.74) uIU/mL - Exam Constitutional: Present: Alert, Oriented x3, Cooperative, Well developed, No distress, Other ENT Exam: Present: normal ENT inspection, hearing grossly normal Neck: Present: normal inspection Respiratory: Present: lungs clear, no respiratory distress Cardiovascular/Chest: Present: regular rate, rhythm, no edema Abdomen: Present: Normal bowel sounds, soft, nontender, nondistended, no rebound tenderness, no hepatospenomegaly, no masses, obese Extremity: Present: non-tender, no pedal edema Skin Exam: Present: normal color, warm/dry, no cyanosis Neurologic: Present: alert, oriented x 3 Appearance: Present: appropriate appearance, appropriate insight, neat, no memory impairment Eye contact: Present: cooperative, good eye contact, normal speech Thoughts: Present: normal thought pattern Assessment/Plan Plan Narrative: Increase thyroid medication slightly. Continue to taper atenolol. Await stress test and consult from cardiology. - Problems/Diagnosis (1) PVCs (premature ventricular contractions) Problem: Acute (2) Monomorphic ventricular tachycardia Problem: Acute (3) Depression Problem: Chronic Qualifiers: Depression Type: major depressive disorder Major depression recurrence: recurrent Active/Remission status: remission status unspecified Qualified Code(s): F33.9 - Major depressive disorder, recurrent, unspecified (4) Fluid retention Problem: Chronic (5) Atrial fibrillation with RVR Problem: Acute (6) Anxiety Problem: Chronic (7) GERD (gastroesophageal reflux disease) Problem: Chronic (8) HTN (hypertension) Problem: Chronic Qualifiers: Hypertension type: essential hypertension Qualified Code(s): I10 - Essential (primary) hypertension (9) Hypothyroidism Problem: Acute Qualifiers: Hypothyroidism type: acquired Qualified Code(s): E03.9 - Hypothyroidism, unspecified
[2016-08-30] MEDS ORDERED: ATENOLOL 50 MG TABLET PO SCH (08:00)
[2016-08-30] MEDS: LEVOFLOXACIN 500 MG TABLET PO SCH (08:05)
[2016-08-30] MEDS: FLUTICASONE PROPIONATE 120 SPRAY INHALER NS SCH (08:05)
[2016-08-30] MEDS: MULTIVITAMINS 1 CAP CAPSULE PO SCH (08:05)
[2016-08-30] MEDS: LORazepam 1 MG TABLET PO SCH (08:08)
[2016-08-30] MEDS ORDERED: LEVOTHYROXINE SODIUM 25 MCG TABLET PO ONE (08:30)
[2016-08-30] MEDS ORDERED: Regadenoson 0.08 MG/ML SYRG IV ONE (09:45)
[2016-08-30] MEDS ORDERED: Regadenoson 0.1 MG UNIT IV ONE (09:45)
[2016-08-30] MEDS ORDERED: ACETAMINOPHEN 325 MG TABLET PO PRN (16:37)
[2016-08-30] MEDS: POTASSIUM CHLORIDE 10 MEQ TABLET.SA PO SCH (16:48)
[2016-08-30] MEDS: MAGNESIUM OXIDE 400 MG TABLET PO SCH (16:51)
[2016-08-30] MEDS ORDERED: POTASSIUM CHLORIDE 10 MEQ TABLET.SA PO SCH (17:00)
[2016-08-30] MEDS ORDERED: WARFARIN SODIUM 10 MG TABLET PO SCH ×2 (17:00)
[2016-08-30] MEDS ORDERED: LORazepam 0.5 MG TABLET PO SCH (21:00)
[2016-08-30] MEDS ORDERED: AMIODARONE HCL 200 MG TABLET PO SCH (21:00)
[2016-08-30] MEDS ORDERED: QUEtiapine FUMARATE 25 MG TABLET PO SCH (21:00)
[2016-08-30] MEDS ORDERED: CYCLOBENZAPRINE HCL 10 MG TABLET PO SCH (21:00)
[2016-08-30] MEDS ORDERED: ATENOLOL 25 MG TABLET PO SCH (21:00)
[2016-08-31] MEDS ORDERED: ENOXAPARIN SODIUM 80 MG/0.8 ML DISP.SYRIN SC SCH (01:15)
[2016-08-31 05:45] LABS: Hematocrit 35.7 % (37.0-47.0); Hemoglobin 11.7 gm/dL (12.5-16.0); Mean Cell Volume 92.5 fl (78-100); Mean Corpuscular Hemoglobin 30.3 pg (27-31); Mean Corpuscular Hgb Conc 32.8 g/dl (32-36); Mean Platelet Volume 11.8 fl (6.0-9.5); Neutrophil # 2.4 K/mm3 (1.3-6.0); Neutrophil % 39.1 % (42-75.0); Platelet Count 190 K/mm3 (150-450); Red Blood Count 3.86 M/mm3 (4.2-5.4); Red Cell Distribution Width 14.6 % (11.5-14.0); White Blood Count 6.3 K/mm3 (4.0-10.5)
[2016-08-31 05:48] LABS: BUN/Creatinine Ratio 18.5 (9.0-21.6); Calcium * 8.6 mg/dL (7.9-10.9); Prothrombin Time (Patient) 20.3 Seconds (9.4-11.4)
[2016-08-31 05:49] LABS: INR 1.95 INR (0.90-1.10)
[2016-08-31 05:50] LABS: Partial Thrombolplastin Time 41.6 Seconds (24-32)
[2016-08-31] MEDS: NORMAL SALINE 1,000 ML IV PRN (06:38)
[2016-08-31] MEDS ORDERED: LEVOTHYROXINE SODIUM 75 MCG TABLET PO SCH (07:00)
[2016-08-31] MEDS ORDERED: PANTOPRAZOLE SODIUM 20 MG TABLET.DR PO SCH (07:00)
[2016-08-31 07:43] VITALS: BP 142/58
--- NOTE | 2016-08-31 07:55 | DS ---
(1) PVCs (premature ventricular contractions) Problem: Acute (2) Monomorphic ventricular tachycardia Problem: Acute (3) Depression Problem: Chronic Qualifiers: Depression Type: major depressive disorder Major depression recurrence: recurrent Active/Remission status: remission status unspecified Qualified Code(s): F33.9 - Major depressive disorder, recurrent, unspecified (4) Fluid retention Problem: Chronic (5) Atrial fibrillation with RVR Problem: Acute (6) Anxiety Problem: Chronic (7) GERD (gastroesophageal reflux disease) Problem: Chronic (8) HTN (hypertension) Problem: Chronic Qualifiers: Hypertension type: essential hypertension Qualified Code(s): I10 - Essential (primary) hypertension (9) Hypothyroidism Problem: Chronic Qualifiers: Hypothyroidism type: acquired Qualified Code(s): E03.9 - Hypothyroidism, unspecified (10) Hypokalemia Problem: Acute (11) Sinus bradycardia Problem: Acute Description of Stay: Rehydrated. Potassium replaced. Stress test ok. Transitioned to amiodarone. remained in sinus bradycardia. feels ok. no recurrent malignant dysrhythmia. Synthroid adjusted. Was advised by cardiology, too dangerous to work till this completely resolved. Electrophysiology appt at [facility] on September 11. Off work until September 18. Procedures Performed: none Discharge Disposition: Home self care Disposition: Home self-care Condition: Good Discharge Activity: Activity as tolerated Discharge Diet: Low salt Referrals: Azeem Dorsey MD [Primary Care Provider] - Consultation Done:: Dr. Garcia, cardiology Problem Oriented Discharge Instructions to Patient/Family: Warfarin: What You Need to Know, Warfarin Coagulopathy, Prothrombin Time, International Normalized Ratio Test Additional Patient Instructions (free text): Follow up with Dr Ignacio To at the [facility] September 13 at 11 am ( Electrophysiology) Follow up with Dr. Fall this coming Sunday. CBC Protime BMP tomorrow Prescriptions (Any new or edited meds): Amiodarone HCl [Cordarone] 200 mg PO DAILY #30 tablet Enoxaparin Sodium [Lovenox] 80 mg SC Q12H #8 disp.syrin Levofloxacin [Levaquin] 500 mg PO DAILY #1 tablet Levothyroxine Sodium [Synthroid] 75 mcg PO QDAC #30 tablet Warfarin Sodium [Coumadin] 2 tab PO DAILY #100 tablet Warfarin Sodium [Coumadin] 5 mg PO DAILY #100 tablet Complete Home Medications List: Complete Home Medication List: Cyclobenzaprine HCl 20 mg PO HS 08/28/16 Fluticasone Propionate [Allergy Relief] 2 spray NS DAILY 08/28/16 LORazepam [Ativan] 0.5 mg PO HS 08/28/16 LORazepam [Ativan] 1 mg PO 0900 08/28/16 Multivitamin [Multivitamins] 1 each PO DAILY 08/28/16 Omeprazole 20 mg PO DAILY 08/28/16 QUEtiapine FUMARATE [Seroquel] 75 mg PO HS 08/28/16 Acetaminophen [Tylenol] 650 mg PO QID PRN #0 tablet 08/31/16 Amiodarone HCl [Cordarone] 200 mg PO DAILY #30 tablet 08/31/16 Enoxaparin Sodium [Lovenox] 80 mg SC Q12H #8 disp.syrin 08/31/16 Levofloxacin [Levaquin] 500 mg PO DAILY #1 tablet 08/31/16 Levothyroxine Sodium [Synthroid] 75 mcg PO QDAC #30 tablet 08/31/16 Warfarin Sodium [Coumadin] 2 tab PO DAILY #100 tablet 08/31/16 Warfarin Sodium [Coumadin] 5 mg PO DAILY #100 tablet 08/31/16
[2016-08-31] MEDS: AMIODARONE HCL 200 MG TABLET PO SCH (08:42)
[2016-08-31] MEDS: POTASSIUM CHLORIDE 10 MEQ TABLET.SA PO SCH (08:43)
[2016-08-31] MEDS: MAGNESIUM OXIDE 400 MG TABLET PO SCH (08:48)
[2016-08-31] MEDS ORDERED: LEVOFLOXACIN 500 MG TABLET PO SCH (09:00)
[2016-08-31] MEDS ORDERED: LORazepam 1 MG TABLET PO SCH (09:00)
[2016-08-31] MEDS ORDERED: MULTIVITAMINS 1 CAP CAPSULE PO SCH (09:00)
[2016-08-31] MEDS ORDERED: FLUTICASONE PROPIONATE 120 SPRAY INHALER NS SCH (09:00)
== END 2016-08-31 10:00 | disposition home or self-care (01) | DRG 309 ==
LOC: ER 19:58 → MS 22:03 → SCU 22:03 → UNDOADMIN 22:03 → MS 08-30 16:34
PROVIDERS: ADMIT Nurse Practitioner; ATTEND Allergy & Immunology
DX: I47.1 Supraventricular tachycardia (principal); F33.9 Major depressive disorder, recurrent, unspecified; I48.91 Unspecified atrial fibrillation; I49.3 Ventricular premature depolarization; I10 Essential (primary) hypertension; K21.9 Gastro-esophageal reflux disease without esophagitis; F41.9 Anxiety disorder, unspecified; E03.9 Hypothyroidism, unspecified
CPT/HCPCS: 36415; 71010; 78452; 80048; 80053; 81001; 83735; 84439; 84443; 84484; 85025; 85610; 85730; 87086; 93005; 93017; 96365; 96366; 96375; 99284; A9502; J2785

== ENCOUNTER 2016-09-03 02:13 | Observation (INO) | payer MEDICARE, BC ==
--- NOTE | 2016-09-03 02:29 | ERNOTE ---
CARDIAC HPI - Narrative Date of Service: 09/03/16 - General Stated Complaint:: PALPITATIONS Time Seen by Provider: 09/03/16 02:00 Source: patient, EMS - History of Present Illness Initial Comments: PT SAYS THAT ABOUT 12OO WHEN GETTING READY TO GO TO BED SHE NOTED PALPITAIONS WITH RAPID HEART BEAT LIKE SHE HAD THIS PAST WEEK. SHE TOOK AN EXTRA DOSE OF AMIODARONE 200 MG AND WAITED 30 MINS BUT NO IMPROVEMENT SO TOOK "100 MG " ATENOLOL THAT SHE HAD BEEN ON IN THE PAST, AND STILL NO IMPROVEMENT. SO EMS WAS CALLED. WHEN THEY ARRIVED SHE HAD A RAPID AFIB THAT CHANGED TO VTACH AND THEY GAVE 150 MG OF AMIODARONE IV WHICH SEEMED TO ABORT THE V TACH BUT SHE WAS STILL IN A FIB WITH HR > 120. SHE WAS TRANSPORTED HERE WITHOUT INCIDENT. SHE DENIES C.P. OR SOB. SHE HAD PROBLEMS LIKE THIS THIS PAST WEEK WHICH LED HER TO BE HOSPITALIZED HERE LAST SUNDAY TILL SUNDAY. SHE WAS SEEN BY DR TURNER IN CONSULT AND WAS STARTED FIRST ON CADIZEM WITH DRIP IN THE ER AND CHANGED TO AMIODARONE WHICH SHE IS NOW ON AT HOME. DR TURNER HAD DONE A STRESS TEST WHICH SHE SAYS SHOWED NO PROBLEM AND HE WAS MAKING ARRANGEMENTS FOR HER TO B E SEEN IN [place] BY AN SUPERINTENDENT STEVEDORING. SHE SAYS SHE HAS BEEN TAKING HER MEDS DIRECTED. SHE CAN THINK OF NOTHING CAUSING HER CURRENT PROBLEMS. SHE SAYS SHE HAS BEEN KNOWN TO HAVE A FIB FOR 20 YEARS AND HAS BEEN DOING FINE OFF OF MEDS TIL RECENTLY. SHE WAS ALSO ON COUMADIN UNTIL SUNDAY WHEN SHE THINKS HER INR WAS 4. SHE IS ALSO ON LOVENOX. THEY TOLD HER TO STOP THE COUMADIN ON SUNDAY. Timing/Duration: 1-3 hours, intermittent Associated Symptoms: Present: denies symptoms - Immun/Allergies/Home Medicatons Immunizations: IMMUNIZATION HX Immunizations Up to Date No History of Influenza Vaccine Yes Hx Pneumococcal Vaccination More Information Required Allergies/Adverse Reactions: Allergies Allergy/AdvReac Type Severity Reaction Status Date / Time Penicillins Allergy Verified 08/28/16 21:34 Home Medications: Ambulatory Orders Medication Instructions Recorded Cyclobenzaprine HCl 20 mg PO HS 08/28/16 Fluticasone Propionate [Allergy 2 spray NS DAILY 08/28/16 Relief] LORazepam [Ativan] 0.5 mg PO HS 08/28/16 LORazepam [Ativan] 1 mg PO 0900 08/28/16 Multivitamin [Multivitamins] 1 each PO DAILY 08/28/16 Omeprazole 20 mg PO DAILY 08/28/16 QUEtiapine FUMARATE [Seroquel] 75 mg PO HS 08/28/16 Acetaminophen [Tylenol] 650 mg PO QID PRN #0 tablet 08/31/16 Amiodarone HCl [Cordarone] 200 mg PO DAILY #30 tablet 08/31/16 Enoxaparin Sodium [Lovenox] 80 mg SC Q12H #8 disp.syrin 08/31/16 Levothyroxine Sodium [Synthroid] 75 mcg PO QDAC #30 tablet 08/31/16 Review of Systems - Review of Systems Cardiology: Present: palpitations. Absent: chest pain All Other Systems: All systems neg except as marked - Patient's Past Medical History Patient History - Medical: Anxiety, Arthritis, GERD, Hypothyroidism, Other Patient History - Cardiac/Respiratory: Arrhythmias, Hypertension Patient History - Cancer: No Hx of Cancer Patient History - Surgical Procedures: Appendectomy, Cataracts, Cholecystectomy , Tubal Ligation Patient History - Other: None - Family History Mother Family History - Medical: - at 62 Family History - Cancer: Bone Father Family History - Medical: Family History - Cardiac/Respiratory: CHF - Social History Living Situations: home Abuse History: No History of abuse Psych History: Hx of Anxiety Alcohol Use: none Drug Use: none - Immunizations Immunizations Up to Date: No Hx Pneumococcal Vaccination: More Information Required to Determine History of Influenza Vaccine: Yes CP Exam - Physical Exam General Appearance: Present: WD/WN, no apparent distress - CALM RELAXED LADY, A & O & COOP Respiratory: Present: chest non-tender, lungs clear, normal breath sounds, no respiratory distress, no accessory muscle use Cardiovascular/Chest: Present: no JVD, no murmur, tachycardia, irregularly irregular Peripheral Pulses: radial (R): 1+, radial (L): 1+ Gastrointestinal/Abdominal: Present: non tender Extremity: Present: no pedal edema, no calf tenderness Neurologic: Present: no motor/sensory deficits, alert, normal mood/affect Skin Exam: Present: normal color, warm/dry ED Progress - PROGRESS/REASSESSMENT Condition: Improved - VITAL SIGNS Patient's Vital Signs:: I have reviewed the patient's vital signs. - AFTER PT ON THE AMIODARONE DRIP SHE WAS ABLE TO CONVERT AND HOLD IN NSR.I CALLED HOSPITALIST TO ARRANGE ADMISSION BUT SHE REC. I SEND PT. TO [facility] WHERE SHE HAD APPOINTMENT TO SEE CARDILOGIST. AFTER EXPLAINING THIS TO THE PT AND THE FACT THERE IS NO MECHANICAL ENGINEERING DRAFTSPERSON HERE THIS WEEKEND , I WAS IN THE MIDDLE OF TALKING WITH DR DEL VALLE FROM THEIR CV ICU THERE WAS A MESSAGE FROM REAL ESTATE ADMINISTRATOR THAT DR JOSE ANTONIO CABRAL WHO WAS NOT CUSTOMER SERVICE SALES CONSULTANT HELGA HAD CALLED HERE SAYING HE WAS WILLING TO ADMIT THE PT UNDER HIS CARE SO SHE WILL NOW BE ADMITTED HERE. Vital Signs - Last Taken Temp 36.7 C 08/31/16 07:41 Pulse Resp BP 142/58 08/31/16 07:41 Pulse Ox - EKG EKG #1 EKG Read: Interp. by me - SEVERAL EKGS WENT FROM A FIB WITH RVR TO V TACH AND THEN BACK TO AFIB RVR AFTER A SECOND BOLUS OF AMIODARONE AND WITH AMIODARONE DRIP SHE FINALLY CONVERTED BACK TO A NSSR WITH ONLY MILD T INVERSION THAT WERE PRESENT WHEN DISCHARGED FROM HERE TWO DAYS AGO. - X-Ray X-Ray #1 XRAY: chest X-Ray Interpretation: Interp. by me - NO CHANGE. SL ELEVATION OF LEFT DIAPHRAGHM. - TRANSFER OF CARE Pending Results: Labs - ARE WNL WITH INR 3.16 ( DECREASED FROM FRI. 4.5) TSH = 8 Departure - Departure Clinical Impression: Atrial fibrillation with rapid ventricular response, Ventricular tachycardia ( paroxysmal) Disposition: [facility] Condition: Serious
[2016-09-03 02:52] LABS: Hematocrit 39.7 % (37.0-47.0); Hemoglobin 13.3 gm/dL (12.5-16.0); Mean Cell Volume 89.4 fl (78-100); Mean Corpuscular Hgb Conc 33.5 g/dl (32-36); Mean Platelet Volume 11.3 fl (6.0-9.5); Neutrophil # 3.4 K/mm3 (1.3-6.0); Neutrophil % 46.3 % (42-75.0); Platelet Count 228 K/mm3 (150-450); Red Blood Count 4.44 M/mm3 (4.2-5.4); Red Cell Distribution Width 14.5 % (11.5-14.0); White Blood Count 7.3 K/mm3 (4.0-10.5)
[2016-09-03 03:02] LABS: Prothrombin Time (Patient) 32.9 Seconds (9.4-11.4)
[2016-09-03 03:03] LABS: INR 3.16 INR (0.90-1.10)
[2016-09-03] MEDS ORDERED: AMIODARONE HCL 900 MG in DEXTROSE 5 % IN WATER 500 ML IV SCH ×2 (03:11)
[2016-09-03 03:19] LABS: ALT 50 U/L (19-67); AST 50 U/L (0-48); Albumin * 3.1 gm/dl (3.4-5.0); Alkaline Phosphatase * 105 U/L (50-170); Anion Gap 12.2 mmol/L (6.8-13.8); BUN/Creatinine Ratio 13.4 (9.0-21.6); Bilirubin, Total 0.5 mg/dL (0.0-1.1); Blood Urea Nitrogen 17 mg/dL (3-23); Ca. Corrected For Albumin 9.6 mg/dL (8.4-10.2); Calcium * 9.2 mg/dL (7.9-10.9); Carbon Dioxide 27.4 mmol/L (24-32.6); Chloride 109 mmol/L (97-106); Glucose * 121 mg/dL (70-110); Potassium 3.6 mmol/L (3.4-4.6); Sodium 145 mmol/L (132-142); TSH * 8.399 uIU/mL (0.358-3.74); Total Protein 7.1 gm/dL (6.2-8.2); Troponin I Less than 0.017 ng/ml (0.00-0.10)
[2016-09-03] MEDS ORDERED: AMIODARONE HCL 150 MG/100 ML PIGGYBACK IV ONE (03:36)
--- OUTSIDE RECORDS SUMMARY | 2016-09-03 05:01 | XMS REPORT | Continuity of Care Document ---
:1950 Author Organization [employer] [place] [address] Care Team Providers Name Role Phone Provider, None Per Patient Primary Care Provider Unavailable Source Comments This disclosure is being made pursuant to the [employer] program and maynot contain all information available regarding this patient.[facility] Active Allergies and Adverse Reactions Allergen Noted [...] Taken Blood Pressure 104/72 06/10/2014 8:55 AM GEOPHYSICAL PROSPECTING SURVEYOR Pulse 74 06/10/2014 8:55 AM GEOPHYSICAL PROSPECTING SURVEYOR Temperature 36.3 C (97.3 F) 06/10/2014 8:55 AM GEOPHYSICAL PROSPECTING SURVEYOR Respiratory Rate 16 06/10/2014 8:55 AM GEOPHYSICAL PROSPECTING SURVEYOR Height 1.6 m (5' 3") 06/05/2014 12:19 PM GEOPHYSICAL PROSPECTING SURVEYOR Weight 77.111 kg (170 lb) 06/05/2014 12:19 PM GEOPHYSICAL PROSPECTING SURVEYOR Body Mass Index 30.12 06/05/2014 12:19 PM GEOPHYSICAL PROSPECTING SURVEYOR Oxygen Saturation 94% 06/07/2014 11:37 PM GEOPHYSICAL PROSPECTING SURVEYOR Plan of Care Health Maintenance Due Date Last Done Comments Tetanus/Pertussis (1 - Tdap) 08/01/1970 Pap Smear 08/01/1972 Mammogram 1991 Colonoscopy 08/01/2001 Well Adult Visit 08/01/2001 Zoster Vaccine 60+ 2011 Retired-INFLUENZA VACCINE 01/06/2016 Results from Last 3 Months Not on file
--- OUTSIDE RECORDS SUMMARY | 2016-09-03 05:01 | XMS REPORT | Continuity of Care Document ---
:1950 Author Organization [facility] ([facility]) [place] [address] Phone [phone] Care Team Providers Name Role Phone Azeem Fall Primary Care Provider [phone] Source Comments This disclosure is being made pursuant to the Care Everywhere program, applicable federal and state laws, and may not contain all informaitonavailable regarding this patient.[facility] ([facility]) Active Allergies and Adverse Reactions Allergen [...] by Active mg tablet mouth at bedtime. [id number] Take 1 Cap by Active pa-fish-st mouth 2 times (GLUCOSAMINE daily. CHONDROITIN PLUS) [id number] mg cap levothyroxine 50 mcg Take 50 mcg by Active tablet mouth daily. multivitamin tablet Take 1 Tab by Active mouth daily. OMEPRAZOLE 20 mg Take 20 mg by 10/02/2014 Active enteric coated mouth daily. capsule FLUTICASONE 50 11/27/2014 Active mcg/Actuation nasal spray QUEtiapine 25 [...] Overview: Poor abduction and elevation Bilateral 03/04/15: [facility] 4.0 mm - Gavino/Peggy - [facility] Last Assessment & Plan: Esophoria, well controlled now She will call if she is having more diplopia otherwise will follow up in general eye clinic Aortic insufficiency Most Recent Encounters Date Type Specialty Providers Description 09/03/2016 Hospital Encounter Emergency Medicine 08/30/2016 Office Visit Heart and Vascular Ronn Garcia Dx: Paroxysmal MD Giles atrial fibrillation (Primary Dx) 08/30/2016 Office Visit Heart and Vascular Ronn Garcia Chief Comp: Patient MD Giles Reported Reason For Visit 08/09/2016 Office Visit Heart and Vascular Una Carcamo Dx: Palpitations S, DO (Primary Dx) Social History Tobacco Use [...] (5' 3") 08/09/2016 1:22 PM CDT Weight 79.379 kg (175 lb) 08/30/2016 10:08 AM CDT Body Mass Index 31.01 08/30/2016 10:08 AM CDT Oxygen Saturation 96% 03/04/2015 4:15 PM CDT Plan of Care Date Type Specialty Providers Description 09/11/2016 Appointment Heart and Vascular Ignacio To MD Chief Comp: Patient [address] [place] [address] Visit [phone] (Fax) 09/22/2016 Appointment Ophthalmology - Noah Mancia MD Chief Comp: Patient Specialty [address] [place] [address] Visit [phone] (Fax) Health Maintenance Due Date Last Done [...]
--- OUTSIDE RECORDS SUMMARY | 2016-09-03 05:43 | XMS REPORT | Continuity of Care Document ---
:1950 Author Organization [facility] ([facility]) Address [place] [address] Phone [phone] Care Team Providers Name Role Phone Azeem Fall Primary Care Provider [phone] Source Comments This disclosure is being made pursuant to the Care Everywhere program, applicable federal and state laws, and may not contain all informaitonavailable regarding this patient.[facility] ([facility]) Active Allergies and Adverse Reactions Allergen [...] by Active mg tablet mouth at bedtime. [id number] Take 1 Cap by Active pa-fish-st mouth 2 times (GLUCOSAMINE daily. CHONDROITIN PLUS) [id number] mg cap levothyroxine 50 mcg Take 50 [...] Overview: Poor abduction and elevation Bilateral 03/04/15: [facility] 4.0 mm - Gavino/Peggy - [facility] Last Assessment & Plan: Esophoria, well controlled now She will call if she is having more diplopia otherwise will follow up in general eye clinic Aortic insufficiency Most Recent Encounters Date Type Specialty Providers Description 09/03/2016 Hospital Encounter Patient Services Markell Pinto MD 08/30/2016 Office Visit Heart and Vascular Ronn Gracia Dx: Paroxysmal MD Giles atrial fibrillation (Primary Dx) 08/30/2016 Office Visit Heart and Vascular Ronn Garcia Chief Comp: Raisa Skaggs MD Reported Reason For Visit 08/09/2016 Office Visit [...] Patient [address] [place] [address] Visit [phone] (Fax) 09/22/2016 Appointment Ophthalmology - Noah Mancia MD Chief Comp: Patient Specialty [address] [place] [address] Visit [phone] (Fax) Health Maintenance Due Date Last Done [...]
--- OUTSIDE RECORDS SUMMARY | 2016-09-03 05:43 | XMS REPORT | Continuity of Care Document ---
:1950 Author Organization [facility] [place] [address] Care Team Providers Name Role Phone Provider, None Per Patient Primary Care Provider Unavailable Source Comments This disclosure is being made pursuant to the [employer] program and maynot contain all information available regarding this patient.[facility] Active Allergies and Adverse Reactions Allergen Noted [...] Taken Blood Pressure 104/72 06/10/2014 8:55 AM DAM WORKER Pulse 74 06/10/2014 8:55 AM DAM WORKER Temperature 36.3 C (97.3 F) 06/10/2014 8:55 AM DAM WORKER Respiratory Rate 16 06/10/2014 8:55 AM DAM WORKER Height 1.6 m (5' 3") 06/05/2014 12:19 PM DAM WORKER Weight 77.111 kg (170 lb) 06/05/2014 12:19 PM DAM WORKER Body Mass Index 30.12 06/05/2014 12:19 PM DAM WORKER Oxygen Saturation 94% 06/07/2014 11:37 PM DAM WORKER Plan of Care Health Maintenance Due Date Last Done Comments Tetanus/Pertussis (1 - Tdap) 08/01/1970 Pap Smear 08/01/1972 Mammogram 1991 Colonoscopy 08/01/2001 Well Adult Visit 08/01/2001 Zoster Vaccine 60+ 2011 Retired-INFLUENZA VACCINE 01/06/2016 Results from Last 3 Months Not on file
[2016-09-03] MEDS ORDERED: ACETAMINOPHEN 325 MG TABLET PO PRN (08:34)
[2016-09-03] MEDS ORDERED: AMIODARONE HCL 200 MG TABLET PO SCH ×2 (09:00→14:00)
[2016-09-03] MEDS ORDERED: LORazepam 1 MG TABLET PO SCH (09:00)
--- NOTE | 2016-09-03 09:54 | HP ---
Chief Complaint - Chief Complaint Date of Service: 09/03/16 Time of Service: 12:01 Chief Complaint: Symptomatic fast heart rate History of Present Illness: This is a 66 year old woman with symptomatic heart rhythm problems. She was just discharged from this hospital a few days ago, at which time a fib with RVR , PVCs and monomorphic runs of V tach were diagnosed. Her potassium was slightly low at that time. She was converted over then from Atenolol to Amiodarone, but by the time of this admission has only had a total loading dose of 2600 mg. Last admission in the ER she was given Adenosine, with no effect. She was given one dose of IV Diltiazem, which helped, but also dropped her blood pressure. There after she remained in sinus bradycardia with normal blood pressure. Because of the sinus bradycardia, she was tapered to 200 mg of amiodarone once daily, at the time of this admission. She was seen during the last admission by cardiology, Dr. Star Garcia, as well as earlier this spring as an outpatient. This spring, her rhythm problems were not clearly defined. She has an outpatient appt coming up at the [facility] on September 11 with an quill fixer. She has had a normal echo this year and just this last week a normal pharmacologic nuclear stress test. In the wee hours of this morning, she was wakened by a fast heart rate, 140-180, symptomatic with light headedness and SOB. She took an extra 200 mg po amiodarone and also a 100 mg atenolol. She called me, because I am her primary care physician, and left several voicemails on my cell phone, because I did not hear her original calls. When I did realize she had called, I returned her calls, but she did not answer, at which point I called 911 and the ambulance brought her to the [facility] ER. In the ER, they gave her IV amiodarone bolus and drip, and she has been in normal sinus rhythm since, although we have now stopped the IV amiodarone. The ER doctor wanted to send her to [place], but in spite of clear understanding of her situation, and rhythm problem, and possible fatal outcome, she does not wish to go, but instead wishes to go home. We discussed the need to load 10 gm total of amiodarone, based on the guidelines referenced in the article below. We will also increase her daily dose of amiodarone to 400 mg daily, once a total of 10 gm has been loaded. She is still somewhat hypothyroid, but we just recently changed her thyroid dose, so it is too soon to see a change in her blood work, we will check again in about a month. In the ER this morning, the nurse also removed a tick, she has two cats and a dog at home, we will also check lyme serology. She will keep her outpatient appt with the quill fixer. Many year ago she also had heart rhythm problems, well controlled with Norpace, but eventually this medication was stopped, and she had no problem in the intervening years. Amiodarone: Guidelines for Use and Monitoring * LENARD OWENS M.D., [facility] Physician. 2002Apr 06;68(08):[id number]. - Patient's Past Medical History Patient History - Medical: Anxiety, Arthritis, GERD, Hypothyroidism, Other - auditory and visual hallucinations. delusions. Patient History - Cardiac/Respiratory: Arrhythmias, Hypertension Patient History - Cancer: No Hx of Cancer Patient History - Surgical Procedures: Appendectomy, Cataracts, Cholecystectomy , Tubal Ligation Patient History - Other: None LMP (females 10-50): postmenopausal - Family History Mother Family History - Medical: Family History - Cardiac/Respiratory: No pertinent hx Family History - Cancer: Bone Father Family History - Medical: Family History - Cardiac/Respiratory: CHF Family History - Cancer: No pertinent family hx - Social History Living Situations: significant other Abuse History: No History of abuse Psych History: Hx of Anxiety Smoking Status: Never smoker Have you smoked in the past 12 months: No Do you dip or chew tobacco: No Patient requests Smoking Cessation Consult: No Initiate information on Smoking Cessation: No Alcohol Use: none Drug Use: none - Immunizations Immunizations Up to Date: No Hx Pneumococcal Vaccination: More Information Required to Determine History of Influenza Vaccine: Yes Review Of Systems (GEN) - Review of Systems Generalized/Overall Review: Present: No Symptoms Reported EENTM: Present: No Symptoms Reported Respiratory: Present: No Symptoms Reported Cardiac: Present: No Symptoms Reported Abdominal: Present: No Symptoms Reported Genitourinary: Present: No Symptoms Reported Musculoskeletal: Present: No Symptoms Reported Neurological: Present: No Symptoms Reported Skin: Present: Bruising - on her abdominal wall, from the lovenox related to her last admission. Allergies/Adverse Reactions: Allergies Allergy/AdvReac Type Severity Reaction Status Date / Time Penicillins Allergy Verified 09/03/16 06:21 Home Medications: HOME MEDICATIONS Cyclobenzaprine HCl 20 mg PO HS 08/28/16 [Last Taken Unknown] Fluticasone Propionate [Allergy Relief] 2 spray NS DAILY 08/28/16 [Last Taken Unknown] LORazepam [Ativan] 0.5 mg PO HS 08/28/16 [Last Taken Unknown] LORazepam [Ativan] 1 mg PO 0900 08/28/16 [Last Taken Unknown] Multivitamin [Multivitamins] 1 each PO DAILY 08/28/16 [Last Taken Unknown] Omeprazole 20 mg PO DAILY 08/28/16 [Last Taken Unknown] QUEtiapine FUMARATE [Seroquel] 75 mg PO HS 08/28/16 [Last Taken Unknown] Acetaminophen [Tylenol] 650 mg PO QID PRN #0 tablet 08/31/16 [Last Taken Unknown ] Amiodarone HCl [Cordarone] 200 mg PO DAILY #30 tablet 08/31/16 [Last Taken Unknown] Enoxaparin Sodium [Lovenox] 80 mg SC Q12H #8 disp.syrin 08/31/16 [Last Taken Unknown] Levothyroxine Sodium [Synthroid] 75 mcg PO QDAC #30 tablet 08/31/16 [Last Taken Unknown] Exam - Exam Vital Signs: Vital Signs - Last Taken Selected Entries 09/03/16 09/03/16 09/03/16 02:17 02:36 02:37 Temperature 37.8 C H Temperature Temporal Artery Source Scan Pulse Rate 170 H 170 H 124 H Pulse Rhythm Regular Pulse Strength Weak Respiratory 16 Rate Respiratory Normal Depth Respiratory Normal Effort Non-Labored Respiratory Normal Pattern Blood Pressure 109/56 128/80 Blood Pressure Supine Position O2 Sat by Pulse 98 Oximetry Oxygen Delivery Room Air Method 09/03/16 09/03/16 09/03/16 03:00 03:30 03:45 Temperature Temperature Source Pulse Rate 163 H 139 H 62 Pulse Rhythm Pulse Strength Respiratory Rate Respiratory Depth Respiratory Effort Respiratory Pattern Blood Pressure 132/72 106/68 122/48 Blood Pressure Position O2 Sat by Pulse Oximetry Oxygen Delivery Method 09/03/16 10:59 Temperature 36.8 C Temperature Oral Source Pulse Rate 55 L Pulse Rhythm Pulse Strength Respiratory 18 Rate Respiratory Normal Depth Respiratory Effort Respiratory Pattern Blood Pressure 131/85 Blood Pressure Supine Position O2 Sat by Pulse 99 Oximetry Oxygen Delivery Room Air Method Constitutional: Present: Alert, Oriented x3, Cooperative, Well developed, No distress, Obese ENT Exam: Present: normal ENT inspection, hearing grossly normal Eye Exam: bilateral eye: normal inspection, PERRL, EOMI Neck: Present: normal inspection Back Exam: Present: normal inspection Respiratory: Present: lungs clear, no respiratory distress Cardiovascular/Chest: Present: regular rate, rhythm, no murmur Abdomen: Present: Normal bowel sounds, soft, nondistended, no rebound tenderness , no hepatospenomegaly, no masses, obese, tender - tender over the bruising over her lower abdoment from lovenox treatment. Extremity: Present: normal range of motion, non-tender, normal inspection, no pedal edema, no calf tenderness Skin Exam: Present: normal color, warm/dry, no cyanosis Neurologic: Present: alert, oriented x 3 Appearance: Present: appropriate appearance, appropriate insight, neat, no memory impairment Eye contact: Present: cooperative, good eye contact, normal speech Thoughts: Present: normal thought pattern Diagnostic Studies: Laboratory Results WBC 7.3 K/mm3 (4.0-10.5) 09/03/16 02:45 RBC 4.44 M/mm3 (4.2-5.4) 09/03/16 02:45 Hgb 13.3 gm/dL (12.5-16.0) 09/03/16 02:45 Hct 39.7 % (37.0-47.0) 09/03/16 02:45 MCV 89.4 fl (78-100) 09/03/16 02:45 MCH 30.0 pg (27-31) 09/03/16 02:45 MCHC 33.5 g/dl (32-36) 09/03/16 02:45 RDW 14.5 % (11.5-14.0) H 09/03/16 02:45 Plt Count 228 K/mm3 (150-450) 09/03/16 02:45 MPV 11.3 fl (6.0-9.5) H 09/03/16 02:45 Immature Gran % (Auto) 0.40 % (0.001-0.429) 09/03/16 02:45 Immature Gran # (Auto) 0.03 K/mm3 (0.000-0.0310) 09/03/16 02:45 Neutrophils % 46.3 % (42-75.0) 09/03/16 02:45 Lymphocytes % 40.3 % (20-51) 09/03/16 02:45 Monocytes % 9.6 % (0.0-9) H 09/03/16 02:45 Eosinophils % 2.6 % (0.0-3.0) 09/03/16 02:45 Basophils % 0.8 % (0.0-1.0) 09/03/16 02:45 Nucleated RBC % 0.0 k/mm3 (0-1) 09/03/16 02:45 Neutrophils # 3.4 K/mm3 (1.3-6.0) 09/03/16 02:45 Lymphocytes # 2.9 k/mm3 (1.5-3.5) 09/03/16 02:45 Monocytes # 0.7 k/mm3 (0.0-1.0) 09/03/16 02:45 Eosinophils # 0.2 k/mm3 (0.0-0.7) 09/03/16 02:45 Absolute Basophils 0.1 k/mm3 (0.0-0.1) 09/03/16 02:45 PT 32.9 Seconds (9.4-11.4) H 09/03/16 02:45 INR (Anticoag Therapy) 3.16 INR (0.90-1.10) H 09/03/16 02:45 Sodium 145 mmol/L (132-142) H 09/03/16 02:45 Plasma Sodium 145 mmol/L (130-142) H 09/03/16 02:45 Potassium 3.6 mmol/L (3.4-4.6) 09/03/16 02:45 Chloride 109 mmol/L (97-106) H 09/03/16 02:45 Carbon Dioxide 27.4 mmol/L (24-32.6) 09/03/16 02:45 Anion Gap 12.2 mmol/L (6.8-13.8) 09/03/16 02:45 BUN 17 mg/dL (3-23) 09/03/16 02:45 Creatinine 1.27 mg/dL (0.4-1.4) 09/03/16 02:45 Est GFR (Non-Af Amer) 45 mL/min (60-130) L 09/03/16 02:45 BUN/Creatinine Ratio 13.4 (9.0-21.6) 09/03/16 02:45 Random Glucose 121 mg/dL (70-110) H 09/03/16 02:45 Calcium 9.2 mg/dL (7.9-10.9) 09/03/16 02:45 Calcium Adj for Albumin 9.6 mg/dL (8.4-10.2) 09/03/16 02:45 Total Bilirubin 0.5 mg/dL (0.0-1.1) 09/03/16 02:45 AST 50 U/L (0-48) H 09/03/16 02:45 ALT 50 U/L (19-67) 09/03/16 02:45 Alkaline Phosphatase 105 U/L (50-170) 09/03/16 02:45 Troponin I Less than 0.017 ng/ml (0.00-0.10) 09/03/16 02:45 Total Protein 7.1 gm/dL (6.2-8.2) 09/03/16 02:45 Albumin 3.1 gm/dl (3.4-5.0) L 09/03/16 02:45 TSH 8.399 uIU/mL (0.358-3.74) H 09/03/16 02:45 Assessment/Plan - Narrative Narrative: As she insists on going home, we will discharge her on a higher dose of Amiodarone, with plans for electrophysiologic outpatient followup. She will see me tomorrow. She understands all the implications of going home at this point. - Assessment/Plan (1) Hallucinations Problem: Chronic (2) Delusions Problem: Chronic (3) Atrial fibrillation with rapid ventricular response Problem: Acute (4) Monomorphic ventricular tachycardia Problem: Acute (5) PVCs (premature ventricular contractions) Problem: Acute (6) Sinus bradycardia Problem: Acute (7) GERD (gastroesophageal reflux disease) Problem: Chronic (8) HTN (hypertension) Problem: Chronic Qualifiers: Hypertension type: essential hypertension Qualified Code(s): I10 - Essential (primary) hypertension (9) Hypothyroidism Problem: Chronic Qualifiers: Hypothyroidism type: acquired Qualified Code(s): E03.9 - Hypothyroidism, unspecified (10) Failure of outpatient treatment Problem: Acute (11) Noncompliance Assessment: Refused ER doctor's recommendation to go by ambulance to [place]. Problem: Acute
[2016-09-03] MEDS ORDERED: LEVOTHYROXINE SODIUM 75 MCG TABLET PO SCH (11:00)
[2016-09-03] MEDS ORDERED: WARFARIN SODIUM 5 MG TABLET PO STA (11:25)
--- NOTE | 2016-09-03 12:45 | DS ---
(1) Hallucinations Problem: Chronic (2) Delusions Problem: Chronic (3) Atrial fibrillation with rapid ventricular response Problem: Resolved (4) Monomorphic ventricular tachycardia Problem: Resolved (5) PVCs (premature ventricular contractions) Problem: Resolved (6) Sinus bradycardia Problem: Acute (7) GERD (gastroesophageal reflux disease) Problem: Chronic (8) HTN (hypertension) Problem: Chronic Qualifiers: Hypertension type: essential hypertension Qualified Code(s): I10 - Essential (primary) hypertension (9) Hypothyroidism Problem: Chronic Qualifiers: Hypothyroidism type: acquired Qualified Code(s): E03.9 - Hypothyroidism, unspecified (10) Failure of outpatient treatment Problem: Acute (11) Noncompliance Problem: Acute Description of Stay: Has remained in sinus rhythm since IV amiodarone in the ER and one extra dose of oral amiodarone plus one dose of 100 mg Atenolol at home. After lengthy discussion, she insists on returning home on a higher dose of amiodarone. Procedures Performed: none Discharge Disposition: Home self care Disposition: Home self-care Condition: Serious Discharge Activity: Activity as tolerated Discharge Diet: Low salt Referrals: Azeem Dorsey MD [Primary Care Provider] - Problem Oriented Discharge Instructions to Patient/Family: Atrial Fibrillation , [id number], Cardiac Ablation Additional Patient Instructions (free text): Keep your appt with Dr. Fall tomorrow. Do the already planned blood work tomorrow. Prescriptions (Any new or edited meds): Amiodarone HCl 400 mg PO TID #100 tablet Warfarin Sodium [Coumadin] 5 mg PO DAILY #30 tablet Complete Home Medications List: Complete Home Medication List: Cyclobenzaprine HCl 20 mg PO HS 08/28/16 Fluticasone Propionate [Allergy Relief] 2 spray NS DAILY 08/28/16 LORazepam [Ativan] 0.5 mg PO HS 08/28/16 LORazepam [Ativan] 1 mg PO 0900 08/28/16 Multivitamin [Multivitamins] 1 each PO DAILY 08/28/16 Omeprazole 20 mg PO DAILY 08/28/16 QUEtiapine FUMARATE [Seroquel] 75 mg PO HS 08/28/16 Acetaminophen [Tylenol] 650 mg PO QID PRN #0 tablet 08/31/16 Levothyroxine Sodium [Synthroid] 75 mcg PO QDAC #30 tablet 08/31/16 Amiodarone HCl 400 mg PO TID #100 tablet 09/03/16 Warfarin Sodium [Coumadin] 5 mg PO DAILY #30 tablet 09/03/16
[2016-09-03 14:29] VITALS: BP 135/66
[2016-09-03] MEDS ORDERED: QUEtiapine FUMARATE 25 MG TABLET PO SCH (21:00)
[2016-09-03] MEDS ORDERED: LORazepam 0.5 MG TABLET PO SCH (21:00)
== END 2016-09-03 17:01 | disposition home or self-care (01) ==
LOC: ER 02:13 → MS 05:37
PROVIDERS: ADMIT Allergy & Immunology; ATTEND Allergy & Immunology
DX: I48.91 Unspecified atrial fibrillation (principal); I10 Essential (primary) hypertension; I47.2 Ventricular tachycardia; I49.8 Other specified cardiac arrhythmias; K21.9 Gastro-esophageal reflux disease without esophagitis; E03.9 Hypothyroidism, unspecified
CPT/HCPCS: 36415; 71010; 80053; 84443; 84484; 85025; 85610; 87801; 93005; 96374; 99284; G0378